=== PATIENT | male | born 1990 ===

== ENCOUNTER 2021-08-20 14:33 | Emergency (ER) | payer SELFPAY ==
[~2021-08-20] VITALS: Ht 172.7 cm; Wt 97.7 kg
[2021-08-20 14:55] VITALS: BP 125/82; TEMP 97.6
[2021-08-20 16:49] LABS: HEMATOCRIT 42.8 % (42.0-52.0); HEMOGLOBIN 14.5 g/dl (13.5-18.0); MEAN CELL VOLUME 95 fl (80.0-100.0); MEAN CORPUSCULAR HEMOGLOBIN 32 pg (27-31); MEAN CORPUSCULAR HGB CONC 34 g/dl (33.0-37.0); MEAN PLATELET VOLUME 9.3 fl (7.4-10.4); PLATELET COUNT 221 K/mm3 (130-400); RED BLOOD COUNT 4.49 M/mm3 (4.20-5.60); REDCELL DISTRIBUTION WIDTH-CV 13.6 % (11.5-14.5)
[2021-08-20 17:06] LABS: CALCIUM 8.9 mg/dL (8.4-10.2); CREATININE, serum 1.01 mg/dL (0.72-1.25)
[2021-08-20 18:20] VITALS: PULSE 68
== END 2021-08-20 18:20 | disposition home or self-care (01) ==
LOC: COL.ER 14:33
PROVIDERS: Nurse Practitioner Family
DX: U07.1 COVID-19 (principal); S80.211A Abrasion, right knee, initial encounter; Z98.890 Other specified postprocedural states; Z96.89 Presence of other specified functional implants; Z28.310 Unvaccinated for COVID-19; W01.198A Fall on same level from slipping, tripping and stumbling with subsequent striking against other object, initial encounter

== ENCOUNTER 2023-05-26 21:18 | Emergency (ER) | payer SELFPAY ==
[~2023-05-26] VITALS: Ht 170.2 cm; Wt 104.5 kg
[2023-05-26 21:23] VITALS: TEMP 98
[2023-05-26] MEDS ORDERED: Ketorolac 30 MG/ML VIAL IM ONE (22:15)
[2023-05-26] MEDS ORDERED: CRUTCHES MC (22:45)
[2023-05-26] MEDS ORDERED: Acetaminophen 500 MG TAB PO ONE (22:45)
[2023-05-26 22:47] VITALS: BP 110/69; PULSE 86
== END 2023-05-26 22:50 | disposition home or self-care (01) ==
LOC: COL.ER 21:18
DX: S83.91XA Sprain of unspecified site of right knee, initial encounter (principal); Z96.60 Presence of unspecified orthopedic joint implant; Z98.890 Other specified postprocedural states; V19.9XXA Pedal cyclist (driver) (passenger) injured in unspecified traffic accident, initial encounter; Y92.410 Unspecified street and highway as the place of occurrence of the external cause
CPT/HCPCS: J1885; L1846